=== PATIENT | female | born 1960 | race African-American/Black ===

== ENCOUNTER 2016-07-12 00:33 | Emergency (ER) | payer MEDICAID ==
[~2016-07-12] VITALS: Ht 160 cm; Wt 108.9 kg
[~2016-07-12 00:33] MED LIST: ALBU8.5H5 INH; AMLO5TAB4 PO; HYDR25TA6 PO; METO25TA91 PO; NAPR250T PO; PRED20TA PO; TOLT2CAP PO
[2016-07-12 00:34] VITALS: BP 138/86
[2016-07-12 01:23] LABS: BLOOD UREA NITROGEN 22 mg/dL (7-18)
[2016-07-12 01:42] LABS: IS PT STATUS REG ER OR PRE ER? YES
== END 2016-07-12 02:40 | disposition home or self-care (01) ==
LOC: ED 00:45
DX: J20.8 Acute bronchitis due to other specified organisms (principal); B96.89 Other specified bacterial agents as the cause of diseases classified elsewhere; I10 Essential (primary) hypertension; E66.9 Obesity, unspecified; M17.9 Osteoarthritis of knee, unspecified; M19.90 Unspecified osteoarthritis, unspecified site
CPT/HCPCS: 36415; 71010; 80048; 82040; 84443; 84484; 85025; 93005

== ENCOUNTER 2016-09-14 18:17 | Emergency (ER) | payer MEDICAID ==
[~2016-09-14] VITALS: Ht 160 cm; Wt 107.7 kg
[2016-09-14 18:22] VITALS: BP 157/86
== END 2016-09-14 19:47 | disposition home or self-care (01) ==
LOC: ED 19:00
DX: A63.0 Anogenital (venereal) warts (principal); Z90.710 Acquired absence of both cervix and uterus; I10 Essential (primary) hypertension; E66.9 Obesity, unspecified; M17.10 Unilateral primary osteoarthritis, unspecified knee
CPT/HCPCS: 99283

== ENCOUNTER 2016-10-22 22:50 | Emergency (ER) | payer MEDICAID ==
[~2016-10-22] VITALS: Ht 160 cm; Wt 106.4 kg
[2016-10-22 22:55] VITALS: BP 144/97
[2016-10-22 23:56] LABS: HEMOGLOBIN 13.8 g/dL (11.7-16.4); WHITE BLOOD COUNT 9.4 x10^3/uL (3.4-10)
[2016-10-23 00:03] LABS: ASPARTATE AMINO TRANSFERASE 26 U/L (15-37); BLOOD UREA NITROGEN 20 mg/dL (7-18)
[2016-10-23] MEDS ORDERED: POTASSIUM CHLORIDE 20 MEQ TAB.ER.PRT PO ONE (00:30)
[2016-10-23] MEDS ORDERED: POTASSIUM CHLORIDE 20 MEQ TAB.ER.PRT ONE (01:01)
== END 2016-10-23 01:15 | disposition home or self-care (01) ==
LOC: ED 23:29
DX: E87.6 Hypokalemia (principal); I10 Essential (primary) hypertension; Z88.1 Allergy status to other antibiotic agents; Z88.2 Allergy status to sulfonamides; Z88.8 Allergy status to other drugs, medicaments and biological substances
CPT/HCPCS: 36415; 80053; 83735; 85025; 93005; 99285

== ENCOUNTER 2017-06-16 19:21 | Emergency (ER) | payer MEDICAID ==
[~2017-06-16] VITALS: Ht 160 cm; Wt 100.2 kg
[2017-06-16 19:22] VITALS: BP 157/99
[2017-06-16] MEDS ORDERED: HYDROcodone/APAP 5/325 TABLET ONE (20:20)
[2017-06-16] MEDS ORDERED: IBUPROFEN 200 MG TABLET ONE (20:20)
[2017-06-16] MEDS ORDERED: IBUPROFEN 200 MG TABLET PO ONE (20:30)
[2017-06-16] MEDS ORDERED: HYDROcodone/APAP 5/325 TABLET PO ONE (20:30)
== END 2017-06-16 21:01 | disposition home or self-care (01) ==
LOC: ED 20:55
DX: S83.92XA Sprain of unspecified site of left knee, initial encounter (principal); G89.29 Other chronic pain; M25.562 Pain in left knee; I10 Essential (primary) hypertension; Z88.2 Allergy status to sulfonamides; W01.0XXA Fall on same level from slipping, tripping and stumbling without subsequent striking against object, initial encounter; Y93.01 Activity, walking, marching and hiking; Y99.8 Other external cause status; Y92.009 Unspecified place in unspecified non-institutional (private) residence as the place of occurrence of the external cause
CPT/HCPCS: 99284

== ENCOUNTER 2017-09-04 13:32 | Emergency (ER) | payer MEDICAID ==
[~2017-09-04] VITALS: Ht 160 cm; Wt 102.3 kg
[2017-09-04 13:34] VITALS: BP 155/91
== END 2017-09-04 14:39 | disposition home or self-care (01) ==
LOC: ED 14:00
DX: R05 Cough (principal); I10 Essential (primary) hypertension
CPT/HCPCS: 71046; 99284